=== PATIENT | female | born 1950 | race Caucasian/White ===

== ENCOUNTER 2017-05-25 12:51 | Inpatient (IN) | payer MEDICARE ==
[~2017-05-25] VITALS: Ht 152.4 cm; Wt 145.3 kg
--- NOTE | ~2017-05-25 | PR ---
[place], [place] [facility]GRESS NOTE [id number] UN[facility] #: [id number] ROOM: 407 DOCTOR: AGATHA KABA MD BIRTHDATE: [birth year] DOS: 05/27/2017 SUBJECTIVE: The patient was seen in followup of acute kidney injury. She is still reporting pain along her left flank area. Overall, pain was worse yesterday, seems to be okay overnight. IV fluids are currently off, no reported nausea, vomiting, intake limited, no further NSAIDs or MADELINE inhibitor, diuretics have been given. Imaging reviewed of the renal ultrasound and CT noncontrast, which is concerning for retroperitoneal lymphadenopathy up to 2.8 cm in length and a new left hilar renal mass 5.8 cm, causing some hydronephrosis and cortical thinning. PHYSICAL EXAMINATION: VITAL SIGNS: Blood pressure 154-108/43-68, temperature 98, pulse 91, respiratory rate 20, saturation 96% on room air. GENERAL: She is awake, alert and oriented, obese woman lying in bed. HEAD AND NECK: Sclerae are anicteric. Oropharynx is clear. Mucous membranes moist, no JVD or lymphadenopathy can be evaluated with her thick neck. LUNGS: Fairly clear, but decreased bilaterally secondary to habitus. CARDIOVASCULAR: Regular rate. No audible rub. No palpable lift or heave. ABDOMEN: Obese, soft, nontender, no CVA tenderness, visceral evaluation is limited because of her body habitus. EXTREMITIES: Peripheries without significant cyanosis or clubbing. Some trace to 1+ edema is definitely present. NEUROLOGIC: Gross motor functions and sensation is intact. No asterixis. PSYCHIATRIC: Mood, affect and memory are intact. LABORATORIES AND DIAGNOSTICS: White blood cell count 5.6, hemoglobin 8.1, stable, and platelets 232. Sodium 138, potassium 4.6, chloride 104, bicarbonate 24, BUN 59, creatinine 5.1, unchanged from yesterday and admission of 5.2, glucose 142, calcium 9.5, phosphorus 6.5, magnesium 2.0. TSH and free T4 normal, vitamin D, normal, B12 is low at 241, albumin 2.4. A1c 6.0, phosphorus 6.5. Urine culture, no growth. ASSESSMENT AND PLAN: Severe acute kidney injury: Recent values are not known, but she did have normal renal function in 2016. She had been on MADELINE inhibitors, possibly diuretics as well as multiple NSAIDs. ATN was a high consideration, but imaging has shown left hydronephrosis with a enlarged mass around the hilar area. The right kidney appears unremarkable, however, and it is unclear why she would be in such profound renal failure if that was draining without obstruction. There has not been any improvement in GFR and while she does not need acute dialysis at this point, I do think that transferring her to facility with a Urology evaluation is important now at this point. She was treated for lymphoma and underwent radiation therapy at [facility], so they at least no some of her past history in terms of the lymphoma and maybe a good option for her to seek therapy for this enlarging mass and see Dr. Haque or Dr. Fregoso. The possibilities of dialysis certainly arise and if she requires dialysis, that can be started there as well and if she needs to transfer back to [facility], I would be happy to take care of her back here. I also gave her the option of going to [facility] where we practice as well as [facility]. She will think about it, but I do think that [place] with [place], [place] PROGRESS NOTE NAME: JUS ANDERS UNIT #: [id number] ROOM: 407 DOCTOR: AGATHA KABA MD BIRTHDATE: [birth year] be closer to her by distance and there is at least some continuity there. I discussed all of this with the patient's bedside nurse as well. Thank you very much for the kind consultation. AGATHA KABA MD CM:PNTRANS [id number] AGATHA KABA MD 05/27/17 1031 interface
--- NOTE | ~2017-05-25 | CON ---
[place], [place] REPORT OF CONSULTATION NAME: JUS ANDERS UNIT #: [id number] ROOM: 407 DOCTOR: AGATHA KABA MD BIRTHDATE: [birth year] DOS: 05/25/2017 REASON FOR CONSULTATION: Acute kidney injury reason. REQUESTING: ER. HISTORY OF PRESENT ILLNESS: The patient is a very pleasant 66-year-old woman with no known renal past medical history. She presented to the emergency department with abnormal laboratories from her PCP's office. She was seen by her PCP on Sunday and had labs drawn at [facility], at that time, was told to come to the emergency room for a creatinine over 5. She has a history of longstanding hypertension and is on multiple medications including lisinopril. She also has a history of diabetes and is on pioglitazone as well as Amaryl. She was taking hydrochlorothiazide as well as amlodipine. Recently, she was started on pioglitazone and PPI. The patient has a history of chronic arthritic pains and was having some more pain in the left side of her flank and was on routine meloxicam 15 mg daily as well. It sounds like this may have been started around the time of mid to late December and a refill was given in mid February, according to claim history. She is noted on laboratories to have a creatinine of 5.24 with fairly stable electrolytes and no significant acidosis. Her phosphorus was elevated at 6.8 with a calcium of 10.1, magnesium of 2.2. Her CBC shows anemia with a hemoglobin of 8.4. She has had some chronic anemia with levels in 2013 being around 9.8-10.6. Her creatinine in 2016 was 0.82. A urinalysis was performed, which shows slightly cloudy urine, 1+ protein, 1+ blood, 3+ leukocyte esterase and 1+ bacteria. Her FENa was greater than 1. No overt casts were seen on microscopy. Renal imaging has been ordered, but not yet done. She has been ordered Rocephin and received 1 gram now and was also started on normal saline at a rate of 125 an hour. She states that she was taking some ibuprofen as well as Aleve in addition to the meloxicam at home. She has been having poor appetite for about the last 2-3 months. She states that would eat handfuls of things, maybe at the most and in general, she was not noting any specific emesis but was having nauseated symptoms. No excessive diarrhea or other water loss otherwise. No other rashes. No other toxic exposures or work-related exposures. No history of renal colic or renal stones in the past. REVIEW OF SYSTEMS: As per the HPI, otherwise all systems reviewed and negative. PAST MEDICAL HISTORY: Positive for hypertension, diabetes, hypothyroidism, anxiety, vitamin D deficiency, history of ovarian resection, T and A, and history of panniculectomy. PHYSICAL EXAMINATION: VITAL SIGNS: Temperature 97.8, 76, 16, 114/56, 97% on room air. GENERAL: Obese, female, age appropriate, lying in bed in the gurney, no acute distress from a respiratory standpoint. HEAD AND NECK: Sclerae are anicteric. Oropharynx is slightly dry. Mucous membranes without thrush. NECK: No JVD or lymphadenopathy. LUNGS: Clear bilaterally. No audible rales, rhonchi or wheeze. [place], [place] REPORT OF CONSULTATION NAME: JUS ANDERS UNIT #: [id number] ROOM: [facility] DOCTOR: AGATHA KABA MD BIRTHDATE: [birth year] CARDIOVASCULAR: Regular rate. No audible rub. Distant heart sounds. ABDOMEN: Obese, soft, nontender, no overt visceral assessment can be done because of her size. EXTREMITIES: Without cyanosis, clubbing, 1+ edema bilateral and symmetric. NEUROLOGIC: Gross motor function is intact. No asterixis, no significant tremors. PSYCHIATRIC: Speech, affect, mood and memory is intact LABORATORY AND DIAGNOSTIC DATA: Urinalysis as above. Urine sodium 85. Urine creatinine 62. White blood cell count 6.4, hemoglobin 8.4, platelets 237. Sodium 136, potassium 4.8, chloride 100, bicarbonate 26, BUN 63, creatinine 5.24, glucose 58, calcium 10.1. LFTs unremarkable except albumin 3.0. ASSESSMENT AND PLAN: Acute kidney injury, this is severe. The etiology is potentially prerenal, now turned to ATN, most likely scenario is a combination of multiple NSAID usage plus MADELINE inhibitor and possible diuretic use. The compounding factor of urinary tract infection may be playing a role here as well. Blood pressures are acceptably controlled, but may have been transiently on the low side with potential compounding volume depletion as an outpatient as well because of her poor intake. I agree with IV fluids and discontinuation of MADELINE inhibitors, diuretics and NSAIDs entirely, avoid the use of contrast and other nephrotoxic medications. Empiric Rocephin has been started for urinary tract and cultures should be obtained and monitored. Vitamin D level will be screened and repeat renal chemistries will need to be obtained. She does have anemia. No other signs of acute blood loss. No acute indications for transfusion at this time and evaluate further for nutritional deficiencies per primary. Thank you very much for the kind consultation. Case was discussed with the hospitalist and ER provider. AGATHA KABA MD CM:CONSTR:REPORT OF CONSULTATION [id number] 05/26/17 1049 interface
[~2017-05-25 12:51] MED LIST: ACTOS30 MG PO; AMLODIPINE10 MG PO; CIPRO250 MG PO; DETROL LA2 MG PO; FLUOXETINE HYDR20 M1 PO; GLIMEPIRIDE2 MG PO; LEVOTHYROXIN0.075 MG PO; LISINOPRIL20 MG PO; VITAMIN D2000 IU PO
[2017-05-25 12:57] VITALS: BP 146/65
[2017-05-25 13:42] LABS: BASO % 0.6 % (0.0-1.0); EOS # 0.3 10*3/uL (0.0-0.4); EOS % 4.5 % (1.0-4.0); HEMATOCRIT 26.3 % (37.0-47.0); HEMOGLOBIN 8.4 g/dl (12.0-16.0); LYMPH % 15.5 % (27.0-41.0); MEAN CELL VOLUME 93.6 fl (81.0-99.0); MEAN CORPUSCULAR HGB 29.9 pg (27.0-31.0); MEAN CORPUSCULAR HGB CONC 31.9 g/dl (33.0-37.0); MEAN PLATELET VOLUME 9.3 fl (9.6-12.3); MONO # 0.6 10*3/uL (0.1-1.0); NEUT # 4.4 10*3/uL (2.3-7.9); NEUT % 69.1 % (47.0-73.0); PLATELET COUNT AUTOMATED 237 10*3/uL (130-400); RED BLOOD COUNT 2.81 10*6/uL (4.10-5.10); RED CELL DISTRI WIDTH 13.9 % (0-14.5); WHITE BLOOD COUNT 6.4 10*3/uL (4.8-10.8)
[2017-05-25 13:57] LABS: MAGNESIUM 2.2 mg/dL (1.5-2.1); PHOSPHOROUS 6.8 mg/dL (2.5-4.9)
[2017-05-25 13:59] LABS: CREATININE 5.24 mg/dL (0.55-1.02); POTASSIUM 4.8 mmol/L (3.5-5.1); TOTAL PROTEIN 7.1 gm/dL (6.4-8.2)
[2017-05-25 14:54] LABS: BILIRUBIN NEGATIVE (NEGATIVE); BLOOD 1+ (NEGATIVE); CLARITY SL CLOUDY (CLEAR); COLOR YELLOW (YELLOW); GLUCOSE NEGATIVE (NEGATIVE); KETONE NEGATIVE (NEGATIVE); LEUKO ESTERASE 3+ (NEGATIVE); NITRITE NEGATIVE (NEGATIVE); UROBILINOGEN 0.2 E.U./dl (0.2-1.0)
[2017-05-25 15:06] LABS: BACTERIA 1+; WBC 41-50 wbc/hpf (0-5)
[2017-05-25 15:09] VITALS: BP 114/56
--- NOTE | 2017-05-25 15:11 | NUR ---
RECTAL EXAM DONE TO LAKIA CASTELLANOS.GUIAC STOOL WAS NEGATIVE--MILO OLIVAS RN
--- NOTE | 2017-05-25 15:32 | NUR ---
PT ATE 100% OF BOX LUNCH--MILO OLIVAS RN
--- NOTE | 2017-05-25 17:42 | NUR ---
A 66, admitted to 4E, under the services of BRE [place] DO with a diagnosis of UTI, HTN,ARF. Chief complaint is PT SENT TO ER FROM PCPS OFFICE FOR ABNORMAL LABWORK AND HAS NO COMPLAINTS AT THIS PRESENT TIME.. Patient arrived via bed from ER. Monitor applied. Initial assessment completed. Vital signs taken and recorded. BRE TOLEDO DO notified of admission to the unit. Orders received. See assessment for past medical history, medications and allergies. Patient and/or family oriented to unit. [facility] visitation policy reviewed. Clothing/patient valuable form completed. ALEKSANDAR GEORGE
[2017-05-25 17:54] VITALS: BP 161/77
--- NOTE | 2017-05-25 18:07 | NUR ---
PT UNABLE TO PROVIDE LIST OF HOME MEDICATIONS AT THIS TIME AND USES A MAIL ORDER PAHARMACY THAT IS UNABLE TO PROVIDE A LIST TO THIS NURSE. PT IS TO CALL HER AUNT WHEN SHE ARRIVES HOME TO GET AN ACCURATE LIST.
[2017-05-25 20:00] VITALS: BP 142/54
[2017-05-25] MEDS ORDERED: VENLAFAXINE75 M1 PO (20:02)
[2017-05-25] MEDS ORDERED: PRAVASTATIN SOD80 MG PO (20:04)
[2017-05-25] MEDS ORDERED: VESICARE5 MG PO (20:05)
[2017-05-25] MEDS ORDERED: MELOXICAM15 MG PO (20:10)
[2017-05-25] MEDS ORDERED: VITAMIN B COMP1 EACH PO (20:14)
--- NOTE | 2017-05-25 20:15 | NUR ---
Aunt called in and gave patient a complete list of medications and doses. Medication Reconciliation updated and verified with patient and medication list.
[2017-05-26] VITALS: BP 140/68
--- NOTE | 2017-05-26 01:20 | NUR ---
24 HR chart check completed.
[2017-05-26 07:08] LABS: BASO % 0.5 % (0.0-1.0); EOS # 0.3 10*3/uL (0.0-0.4); EOS % 5.2 % (1.0-4.0); HEMATOCRIT 23.7 % (37.0-47.0); HEMOGLOBIN 7.4 g/dl (12.0-16.0); LYMPH # 0.8 10*3/uL (1.3-4.4); LYMPH % 14.2 % (27.0-41.0); MEAN CELL VOLUME 95.6 fl (81.0-99.0); MEAN CORPUSCULAR HGB 29.8 pg (27.0-31.0); MEAN CORPUSCULAR HGB CONC 31.2 g/dl (33.0-37.0); MEAN PLATELET VOLUME 9.6 fl (9.6-12.3); MONO # 0.7 10*3/uL (0.1-1.0); NEUT # 3.9 10*3/uL (2.3-7.9); NEUT % 67.9 % (47.0-73.0); PLATELET COUNT AUTOMATED 217 10*3/uL (130-400); RED BLOOD COUNT 2.48 10*6/uL (4.10-5.10); RED CELL DISTRI WIDTH 14.1 % (0-14.5); WHITE BLOOD COUNT 5.8 10*3/uL (4.8-10.8)
[2017-05-26 07:30] LABS: ALBUMIN 2.4 gm/dl (3.1-4.5); CREATININE 5.1 mg/dL (0.55-1.02); MAGNESIUM 1.9 mg/dL (1.5-2.1); PHOSPHOROUS 6.5 mg/dL (2.5-4.9); POTASSIUM 4.5 mmol/L (3.5-5.1)
[2017-05-26 07:36] LABS: FREE T4 1.25 ng/dl (0.76-1.46); THYROID STIM HORMONE (HS) 2.2 uIU/ml (0.358-4.75)
[2017-05-26 08:00] VITALS: BP 122/54
[2017-05-26 08:00] LABS: ACT PARTIAL THROMBO TIME 26.8 SECONDS (20.8-31.5)
[2017-05-26 08:32] LABS: VITAMIN D, 25-HYDROXY 29.4 ng/mL (30-100)
--- NOTE | 2017-05-26 08:35 | NUR ---
DR. Lowry notified of pt hemoglobin of 7.4.
[2017-05-26 12:00] VITALS: BP 150/54
[2017-05-26 16:00] VITALS: BP 143/67
[2017-05-26 20:00] VITALS: BP 108/43
[2017-05-27] VITALS: BP 154/68
--- NOTE | 2017-05-27 00:28 | NUR ---
24 HR chart check completed.
[2017-05-27 06:13] LABS: BASO % 0.7 % (0.0-1.0); EOS # 0.3 10*3/uL (0.0-0.4); EOS % 5.7 % (1.0-4.0); HEMATOCRIT 25.4 % (37.0-47.0); HEMOGLOBIN 8.1 g/dl (12.0-16.0); LYMPH # 0.8 10*3/uL (1.3-4.4); LYMPH % 14.2 % (27.0-41.0); MEAN CELL VOLUME 94.4 fl (81.0-99.0); MEAN CORPUSCULAR HGB 30.1 pg (27.0-31.0); MEAN CORPUSCULAR HGB CONC 31.9 g/dl (33.0-37.0); MEAN PLATELET VOLUME 9.9 fl (9.6-12.3); MONO # 0.7 10*3/uL (0.1-1.0); MONO % 12.2 % (3.0-9.0); NEUT # 3.7 10*3/uL (2.3-7.9); NEUT % 66.8 % (47.0-73.0); PLATELET COUNT AUTOMATED 232 10*3/uL (130-400); RED BLOOD COUNT 2.69 10*6/uL (4.10-5.10); RED CELL DISTRI WIDTH 13.9 % (0-14.5); WHITE BLOOD COUNT 5.6 10*3/uL (4.8-10.8)
[2017-05-27 06:52] LABS: CREATININE 5.1 mg/dL (0.55-1.02); PHOSPHOROUS 6.5 mg/dL (2.5-4.9); POTASSIUM 4.6 mmol/L (3.5-5.1)
--- NOTE | 2017-05-27 07:25 | NUR ---
CALLED DR KABA TO NOTIFY OF LAB RESULTS PER HIS REQUEST. SERVICE STATED THEY WOULD PAGE HIM.
--- NOTE | 2017-05-27 07:36 | NUR ---
Shift chart check completed.
--- NOTE | 2017-05-27 07:42 | NUR ---
NOTIFIED DR NEUMANN THAT DR KABA RECOMMENDS THAT PATIENT BE TRANSFERRED TO ANOTHER FACILITY DUE TO HER BUN AND EQUAL OPPORTUNITY SPECIALIST LEVEL.
[2017-05-27 08:00] VITALS: BP 152/75
[2017-05-27 12:00] VITALS: BP 149/83
[2017-05-27] MEDS ORDERED: NATURE'S BLEND F1 MG PO (13:53)
[2017-05-27] MEDS ORDERED: HEPARIN SO5000 UNIT/ SC (13:53)
[2017-05-27] MEDS ORDERED: B12,B-12,B 12500 MC1 PO (13:53)
[2017-05-27] MEDS ORDERED: Insulin Lispro, Reco SC (13:53)
[2017-05-27 16:00] VITALS: BP 113/50
--- NOTE | 2017-05-27 18:54 | NUR ---
CALLED REPORT TO NAIN AT [facility].
--- NOTE | 2017-05-27 19:03 | NUR ---
PATIENT LEFT WITH [facility]. PATIENT IS D/C TO [facility].
== END 2017-05-27 19:03 | disposition short-term general hospital (02) | DRG 683 ==
LOC: ED 12:51 → 4E 15:15 → EDHOLD 15:15 → 4E 15:31
PROVIDERS: Nurse Practitioner Family; Student in an Organized Health Care Education/Training Program; ADMIT Internal Medicine
DX: N17.0 Acute kidney failure with tubular necrosis (principal); N30.01 Acute cystitis with hematuria; E44.0 Moderate protein-calorie malnutrition; N13.30 Unspecified hydronephrosis; E11.65 Type 2 diabetes mellitus with hyperglycemia; Z68.44 Body mass index [BMI] 60.0-69.9, adult; E83.39 Other disorders of phosphorus metabolism; E83.41 Hypermagnesemia; G89.29 Other chronic pain; I10 Essential (primary) hypertension; E03.9 Hypothyroidism, unspecified; F41.9 Anxiety disorder, unspecified; T39.395A Adverse effect of other nonsteroidal anti-inflammatory drugs [NSAID], initial encounter; T46.4X5A Adverse effect of angiotensin-converting-enzyme inhibitors, initial encounter; N32.81 Overactive bladder; E66.01 Morbid (severe) obesity due to excess calories; E78.00 Pure hypercholesterolemia, unspecified; D64.9 Anemia, unspecified; F32.9 Major depressive disorder, single episode, unspecified; Z85.72 Personal history of non-Hodgkin lymphomas; Z79.899 Other long term (current) drug therapy; Z90.49 Acquired absence of other specified parts of digestive tract; Z90.722 Acquired absence of ovaries, bilateral; Z92.3 Personal history of irradiation; Y92.89 Other specified places as the place of occurrence of the external cause

== ENCOUNTER → 2018-03-01 | Outpatient (CLI) | payer MEDICARE ==
[~2018-03-01] MED LIST changes: +AMARYL2 MG PO; +B12,B-12,B 12500 MC1 PO; +HEPARIN SO5000 UNIT/ SC; +Insulin Lispro, Reco SC; +MELOXICAM15 MG PO; +NATURE'S BLEND F1 MG PO; +PRAVASTATIN SOD80 MG PO; +VENLAFAXINE75 M1 PO; +VESICARE5 MG PO; +VITAMIN B COMP1 EACH PO
[2018-03-01 12:35] VITALS: BP 124/50
[2018-03-01 13:42] LABS: HEMOGLOBIN 8.4 g/dl (12.0-16.0); MEAN CELL VOLUME 96.4 fl (81.0-99.0); MEAN CORPUSCULAR HGB CONC 31.1 g/dl (33.0-37.0); RED CELL DISTRI WIDTH 15.8 % (0-14.5)
[2018-03-01 14:05] LABS: BASOPHILS 1 % (0-1); TOTAL CELLS COUNTED 100 #CELLS
[2018-03-01 14:08] LABS: PLATELET SUFFICIENCY LOW (NORMAL)
[2018-03-01 14:09] LABS: DOHLE BODIES FEW; TOXIC GRANULATION SLIGHT
[2018-03-01 14:14] LABS: PLATELET COUNT AUTOMATED 6 10*3/uL (130-400)
[2018-03-01 14:15] LABS: WHITE BLOOD COUNT 1.6 10*3/uL (4.8-10.8)
[2018-03-01 16:30] VITALS: BP 133/56
== END ==
LOC: TRNFUSION 10:56
PROVIDERS: Nurse Practitioner
DX: Z51.89 Encounter for other specified aftercare (principal); N18.3 Chronic kidney disease, stage 3 (moderate); C83.38 Diffuse large B-cell lymphoma, lymph nodes of multiple sites; D63.1 Anemia in chronic kidney disease

== ENCOUNTER → 2019-05-21 | Day surgery (SDC) | payer MEDICARE ==
[~2019-05-21] VITALS: Ht 149.8 cm; Wt 128.8 kg
--- NOTE | ~2019-05-21 | O ---
[place], [place] OPERATIVE NOTE NAME: JUS ANDERS UNIT #: [id number] ROOM: DOCTOR: PARI GANDARA MD BIRTHDATE: [birth year] DOS: 05/21/2019 GASTROENDOSCOPIC REPORT HISTORY OF PRESENT ILLNESS: A 68-year-old patient who has presented for colonic screening, undergoing investigation. PAST MEDICAL HISTORY: Associated with diabetes mellitus, chronic renal disease, morbid obesity, systemic hypertension. PAST SURGICAL HISTORY: MediPort renal stent. ALLERGIES: No medication. FAMILY HISTORY: Noncontributory. SOCIAL HISTORY: Nonsmoker, nonalcohol consumer. PROCEDURE: Today's procedure part of investigation is colonoscopy plus piecemeal polypectomy. PREMEDICATION: Versed and Propofol. SCOPE: Olympus forward-viewing colonoscope 10L video. REPORT: After putting the patient in left lateral position and application of lubricant to the scope, the scope was introduced. Thereafter, under direct visualization, advanced through the length of colon without difficulty. Base of the cecum explored, appendiceal orifice identified. Sessile diminutive polyp in the mid ascending and cecum was removed with biopsy, the patient was gradually extubated. Rare diverticulosis was identified. The patient extubated, tolerated the procedure well. IMPRESSION: Diverticulosis in the rare form and sessile polypoid lesion at the base of cecum, status post piecemeal polypectomy small hemorrhoids. PLAN AND DISCUSSION: High fiber diet, low-fat diet. We are already are following on the issue of B-cell lymphoma, she is status post chemoradiation and renal failure is being managed by and supportive work in progress. Thank you very much indeed. [place], [place] OPERATIVE NOTE NAME: JUS ANDERS UNIT #: [id number] ROOM: DOCTOR: PARI GANDARA MD BIRTHDATE: [birth year] PARI GANDARA MD CM:OPRECORD:OPERATIVE NOTE [id number] PARI GANDARA MD 05/21/19 1200 interface
[2019-05-21 07:00] VITALS: BP 99/36
[2019-05-21 08:17] VITALS: BP 123/83
[2019-05-21 08:29] VITALS: BP 117/84
[2019-05-21 08:45] VITALS: BP 142/68
== END | disposition home or self-care (01) ==
LOC: SDC 05-19 11:00
DX: Z12.11 Encounter for screening for malignant neoplasm of colon (principal); K63.5 Polyp of colon; K57.30 Diverticulosis of large intestine without perforation or abscess without bleeding; I12.9 Hypertensive chronic kidney disease with stage 1 through stage 4 chronic kidney disease, or unspecified chronic kidney disease; E11.22 Type 2 diabetes mellitus with diabetic chronic kidney disease; N18.4 Chronic kidney disease, stage 4 (severe); K21.9 Gastro-esophageal reflux disease without esophagitis; F32.9 Major depressive disorder, single episode, unspecified; G47.30 Sleep apnea, unspecified; E66.01 Morbid (severe) obesity due to excess calories; Z68.43 Body mass index [BMI] 50.0-59.9, adult; Z79.899 Other long term (current) drug therapy; Z98.890 Other specified postprocedural states; Z85.9 Personal history of malignant neoplasm, unspecified; Z83.3 Family history of diabetes mellitus

== ENCOUNTER 2019-09-06 14:50 | Inpatient (IN) | payer MEDICARE ==
[~2019-09-06] VITALS: Ht 149.9 cm; Wt 135.9 kg
[2019-09-06 14:52] VITALS: BP 174/79
[2019-09-06 16:30] LABS: BASO % 0.1 % (0.0-1.0); HEMATOCRIT 32.9 % (37.0-47.0); HEMOGLOBIN 10.5 g/dl (12.0-16.0); LYMPH # 0.3 10*3/uL (1.3-4.4); MEAN CELL VOLUME 101.5 fl (81.0-99.0); MEAN CORPUSCULAR HGB 32.4 pg (27.0-31.0); MEAN CORPUSCULAR HGB CONC 31.9 g/dl (33.0-37.0); MEAN PLATELET VOLUME 10.4 fl (9.6-12.3); MONO # 1.2 10*3/uL (0.1-1.0); MONO % 8.7 % (3.0-9.0); NEUT # 12.6 10*3/uL (2.3-7.9); NEUT % 88.3 % (47.0-73.0); PLATELET COUNT AUTOMATED 67 10*3/uL (130-400); RED BLOOD COUNT 3.24 10*6/uL (4.10-5.10); RED CELL DISTRI WIDTH 13.8 % (0-14.5); WHITE BLOOD COUNT 14.2 10*3/uL (4.8-10.8)
[2019-09-06 16:30] LABS: BILIRUBIN NEGATIVE (NEGATIVE); BLOOD 2+ (NEGATIVE); CLARITY CLEAR (CLEAR); COLOR YELLOW (YELLOW); GLUCOSE TRACE (NEGATIVE); KETONE NEGATIVE (NEGATIVE); LEUKO ESTERASE NEGATIVE (NEGATIVE); NITRITE NEGATIVE (NEGATIVE); SPECIFIC GRAVITY 1.015 (1.005-1.030); UROBILINOGEN 0.2 E.U./dl (0.2-1.0)
[2019-09-06 16:40] LABS: BACTERIA 1+
[2019-09-06 16:53] LABS: ALBUMIN 3.5 gm/dl (3.1-4.5); CREATININE 3.06 mg/dL (0.55-1.02); TOTAL PROTEIN 6.5 gm/dL (6.4-8.2)
[2019-09-06 19:25] VITALS: BP 154/70
[2019-09-06 20:00] VITALS: BP 154/70
[2019-09-06] MEDS ORDERED: OXYBUTYNIN5 MG PO (20:42)
[2019-09-06] MEDS ORDERED: AMLODIPINE BESY10 MG PO (20:42)
[2019-09-06] MEDS ORDERED: LABETALOL HCL100 MG PO (21:18)
[2019-09-06] MEDS ORDERED: OMEPRAZOLE40 MG PO (21:29)
--- NOTE | 2019-09-06 21:31 | NUR ---
UNABLE TO UPDATE MED REC FULLY AT THIS TIME.
--- NOTE | 2019-09-06 21:48 | NUR ---
Time: 1926 A 68 year old FEMALE admitted to 5E under services of MICHEAL MARIA DO. Pt. arrived via wheel chair from ER. Chief complaint: COLD SYMPTOMS. TANYA BAE
[2019-09-07] VITALS: BP 139/67
[2019-09-07] MEDS ORDERED: ALDACTONE25 MG PO (01:58)
[2019-09-07] MEDS ORDERED: ACYCLOVIR200 MG PO (01:59)
[2019-09-07] MEDS ORDERED: BUMETANIDE2 MG PO (01:59)
[2019-09-07] MEDS ORDERED: PIOGLITAZONE HC30 MG PO (02:00)
--- NOTE | 2019-09-07 02:01 | NUR ---
MED REC UP TO DATE VIA MED CLAIM HISTORY.
[2019-09-07 06:09] LABS: BASO % 0.2 % (0.0-1.0); EOS # 0.1 10*3/uL (0.0-0.4); EOS % 0.5 % (1.0-4.0); HEMATOCRIT 29.2 % (37.0-47.0); HEMOGLOBIN 9.2 g/dl (12.0-16.0); LYMPH # 0.4 10*3/uL (1.3-4.4); LYMPH % 2.6 % (27.0-41.0); MEAN CELL VOLUME 101.4 fl (81.0-99.0); MEAN CORPUSCULAR HGB 31.9 pg (27.0-31.0); MEAN CORPUSCULAR HGB CONC 31.5 g/dl (33.0-37.0); MEAN PLATELET VOLUME 11.3 fl (9.6-12.3); MONO # 1.2 10*3/uL (0.1-1.0); MONO % 8.4 % (3.0-9.0); NEUT # 12.8 10*3/uL (2.3-7.9); NEUT % 87.3 % (47.0-73.0); PLATELET COUNT AUTOMATED 67 10*3/uL (130-400); RED BLOOD COUNT 2.88 10*6/uL (4.10-5.10); RED CELL DISTRI WIDTH 13.9 % (0-14.5); WHITE BLOOD COUNT 14.7 10*3/uL (4.8-10.8)
[2019-09-07 06:37] LABS: ALBUMIN 2.9 gm/dl (3.1-4.5); PHOSPHOROUS 3.2 mg/dL (2.5-4.9); POTASSIUM 3.9 mmol/L (3.5-5.1)
[2019-09-07 06:45] LABS: FREE T4 1.2 ng/dl (0.76-1.46); THYROID STIM HORMONE (HS) 0.836 uIU/ml (0.358-4.75); TOTAL PROTEIN 5.7 gm/dL (6.4-8.2)
[2019-09-07 08:00] VITALS: BP 138/63
--- NOTE | 2019-09-07 08:00 | NUR ---
CONSULT COMPLETE FOR DR. ERVIN, SEE NEW ORDERS.
[2019-09-07 08:29] LABS: VITAMIN D, 25-HYDROXY 27.3 ng/mL (30-100)
--- NOTE | 2019-09-07 09:07 | NUR ---
24 HR chart check completed.
--- NOTE | 2019-09-07 09:30 | NUR ---
SLEEPING. AWAKENS EASILY. RESPIRATIONS EASY. LUNGS DIMINISHED. PULSE OX 96% RA. NON-PROD COUGH. +2 PITTING BLE EDEMA. IV FLUIDS INFUSING PER ORDER. CALL LIGHT WITHIN REACH. NO VOICED COMPLAINTS.
--- NOTE | 2019-09-07 10:14 | NUR ---
MEDCIATED WITH TYLENOL PER PRN ORDER FOR COMPLAINTS OF HEADACHE RATING A 4. CALL LIGHT WITHIN REACH. WILL MONITOR
--- NOTE | 2019-09-07 11:30 | NUR ---
MEDS APPEAR EFFECTIVE. SLEEPING. RESPIRATIONS EASY. IV FLUIDS MAINTAINED. CALL LIGHT WITHIN REACH
[2019-09-07 12:00] VITALS: BP 125/55
--- NOTE | 2019-09-07 14:15 | NUR ---
ATTEMPTED TO REACH INFECTIOUS DISEASE. MESSAGE LEFT WITH ANSWERING SERVICE REGARDING CONSULT, AWAITING RETURN CALL
--- NOTE | 2019-09-07 14:45 | NUR ---
DR GILBERT CONTACTED AND INFORMED OF CONSULT. WILL SEE PATIENT SUNDAY
[2019-09-07 16:00] VITALS: BP 147/60
--- NOTE | 2019-09-07 17:30 | NUR ---
DR ERVIN HERE TO ASSESS PATIENT AND DISCUSS PLAN OF CARE
[2019-09-07 20:00] VITALS: BP 141/58
--- NOTE | 2019-09-07 20:00 | NUR ---
PATIENT ASSISTED TO BATHROOM. INCONTINENT ALL THE WAY TO THE BATHROOM. PATIENT ASSISTED WITH CLEANING SELF UP. RESPIRATIONS REGULAR AND NON-LABORED. DENIES COMPLAINTS OF PAIN OR DISCOMFORT. ASSISTED BACK TO BED. WILL CONTINUE TO MONITOR. CALL LIGHT IN REACH.
[2019-09-08] VITALS: BP 132/57
[2019-09-08 06:07] LABS: BASO % 0.3 % (0.0-1.0); EOS # 0.1 10*3/uL (0.0-0.4); EOS % 0.5 % (1.0-4.0); HEMATOCRIT 26.4 % (37.0-47.0); HEMOGLOBIN 8.4 g/dl (12.0-16.0); LYMPH # 0.5 10*3/uL (1.3-4.4); LYMPH % 4.6 % (27.0-41.0); MEAN CELL VOLUME 100.4 fl (81.0-99.0); MEAN CORPUSCULAR HGB 31.9 pg (27.0-31.0); MEAN CORPUSCULAR HGB CONC 31.8 g/dl (33.0-37.0); MEAN PLATELET VOLUME 11.2 fl (9.6-12.3); MONO # 1.2 10*3/uL (0.1-1.0); MONO % 10.4 % (3.0-9.0); NEUT # 9.6 10*3/uL (2.3-7.9); NEUT % 83.4 % (47.0-73.0); PLATELET COUNT AUTOMATED 69 10*3/uL (130-400); RED BLOOD COUNT 2.63 10*6/uL (4.10-5.10); RED CELL DISTRI WIDTH 13.9 % (0-14.5); WHITE BLOOD COUNT 11.5 10*3/uL (4.8-10.8)
[2019-09-08 06:31] LABS: CREATININE 3.2 mg/dL (0.55-1.02); POTASSIUM 3.9 mmol/L (3.5-5.1)
[2019-09-08 08:00] VITALS: BP 129/51
--- NOTE | 2019-09-08 08:25 | NUR ---
PHYSICAL THERAPY Screen recieved, pt admit from home with respiratory issues please consult physical therapy if decline in functional status/ambulation from baseline, thank you. Marisabel Joaquin PT
--- NOTE | 2019-09-08 08:58 | NUR ---
Neurological: AAOX3 Respiratory: ROOM AIR, NONLABORED Breath sounds: DIMINISHED T/O Cough: MOIST NONPRODUCTIVE AT TIMES Cardiovascular: DENIES CP/PRESSURE 2+ PITTING BLE EDEMA, PPP Gastrointestinal: NORMOACTIVE X4 QUADS, DENIES N/V/D/C, ABD SOFT/NONTENDER/OBESE Genito/Urinary: DENIES DYSURIA Musculoskeketal: AMBULATORY W/ WALKER, SKIN W/D AND INTACT PATIENT IS RESTING IN BED WITH NO C/O OR S/S OF DISTRESS NOTED AT THIS TIME. BED IS LOW, LOCKED, AND CALL LIGHT IS WITHIN REACH. WILL CONTINUE TO MONITOR, SEE SHIFT ASSESSMENT. TANYA BAE A
--- NOTE | 2019-09-08 10:55 | NUR ---
PATIENT IS SPEAKING ON TELEPHONE AT THIS TIME, NO S/S OF DISTRESS NOTED. CALL LIGHT IS WITHIN REACH.
[2019-09-08 12:00] VITALS: BP 121/51
--- NOTE | 2019-09-08 13:58 | NUR ---
DR. MCDONALD ON FLOOR EARLIER TODAY AND WAS MADE AWARE OF CONSULT. PATIENT SEEN BY HIM WELL.
--- NOTE | 2019-09-08 14:23 | NUR ---
Associate Brand Manager in to talk to patient. Patient states lives at HOME with AUNT. There are FEW steps in the home. Physician: ALEXANDRA Pharmacy: [facility] [place] health services: NONE Patient's level of ADLs: INDEPENDENT Patient has working utilities: YES DME: NONE Follow-up physician's appointment after d/c: WILL BE MADE BY HOSPITALIST NURSE DIRECTOR ON DISCHARGE Does patient want to access PORTAL?: NO Discharge plan PT LIVES AT HOME WITH HER AUNT AND IS INDEPENDENT IN HER CARE. STATES SHE IS IN THE PROCESS OF MOVING CLOSE TO [facility]. DENIES SHE WILL HAVE NEEDS ON DISCHARGE. STATES SHE WILL SET UP ANYTHING SHE NEEDS WHEN SHE GETS NEW DOCTOR IN [place]. [place] CONTINUE TO FOLLOW. STATES SHE WILL HAVE A RIDE HOME.. TONNY ADAMS
--- NOTE | 2019-09-08 14:59 | NUR ---
SPEECH PATHOLOGY Modified barium swallow completed as per orders to rule out aspiration. Medical history includes chronic renal disease, bronchial pneumonia, abdominal CA, NIDDM, HTN. Patient receives a regular diet and thin liquid. She endorsed difficulty characterized by a feeling that foods (mostly meats) are sticking in her throat. She stated that it occurs, she drinks water which eventually helps relieve the feeling of globus. Patient was assessed with barium coated applesauce, turkey sandwich and thin liquid barium taken by cup and straw. Results revealed oral and pharyngeal swallowing skills WNL. Recommend she remain on present diet and use strategies such as chewing thoroughly and alternating liquid and solid. No follow up treatment is warranted at this time. Results and ghazal. were shared with patient and her nurse and they verbalized understanding. Dictated report to follow. Thank you for this referral. FAVIO WILKERSON [facility]-COMPUTER SUPPORT ANALYST
[2019-09-08 16:00] VITALS: BP 116/50
--- NOTE | 2019-09-08 16:41 | NUR ---
Nursing screen received and chart review completed. Patient admitted with cold symptoms and was independent prior to admission. No OT indicated at this time. Thank you. Sowmya Seth OTR/L
[2019-09-08 20:00] VITALS: BP 125/55
[2019-09-09] VITALS: BP 119/68
[2019-09-09 06:25] LABS: BASO % 0.2 % (0.0-1.0); EOS # 0.2 10*3/uL (0.0-0.4); EOS % 2.1 % (1.0-4.0); HEMATOCRIT 25.9 % (37.0-47.0); HEMOGLOBIN 8.1 g/dl (12.0-16.0); LYMPH # 0.5 10*3/uL (1.3-4.4); LYMPH % 5.5 % (27.0-41.0); MEAN CELL VOLUME 100.4 fl (81.0-99.0); MEAN CORPUSCULAR HGB 31.4 pg (27.0-31.0); MEAN CORPUSCULAR HGB CONC 31.3 g/dl (33.0-37.0); MEAN PLATELET VOLUME 11.5 fl (9.6-12.3); MONO % 11.1 % (3.0-9.0); NEUT # 6.9 10*3/uL (2.3-7.9); NEUT % 80.2 % (47.0-73.0); PLATELET COUNT AUTOMATED 85 10*3/uL (130-400); RED BLOOD COUNT 2.58 10*6/uL (4.10-5.10); RED CELL DISTRI WIDTH 13.8 % (0-14.5); WHITE BLOOD COUNT 8.6 10*3/uL (4.8-10.8)
[2019-09-09 06:47] LABS: CREATININE 3.4 mg/dL (0.55-1.02); POTASSIUM 3.9 mmol/L (3.5-5.1)
[2019-09-09 08:00] VITALS: BP 138/56
--- NOTE | 2019-09-09 10:10 | NUR ---
NOTIFIED OF BLOOD CULTURE RESULTS.
--- NOTE | 2019-09-09 11:54 | NUR ---
MANAGER SERVICES BACK IN TO TALK TO PT ABOUT REHAB IF IV ANTIBIOTICS ARE NEEDED AFTER DISCHARGE. PT STATES SHE DOES NOT WANT TO GO TO REHAB SHE WAS IN ONE ONCE AND DOES NOT WANT TO GO AGAIN. ASK HER IF NEEDED SHE WOULD HAVE HELP AT HOME TO GET THEM. STATES SHE DOES NOT KNOW AT THIS TIME. WILL CONTINUE TO FOLLOW.
[2019-09-09 12:00] VITALS: BP 132/60
[2019-09-09] MEDS ORDERED: VITAMIN D32000 UNI1 PO (14:27)
[2019-09-09] MEDS ORDERED: ENOXAPARIN30 MG/0.2 SC (14:27)
--- NOTE | 2019-09-09 15:38 | NUR ---
[facility]ED [facility] TO GET PRE AUTORAZATION FOR PT TO BE TRANSFERRED TO [facility] FOR UROLOGY. PER GABBIE AT [facility] THEY ARE IN NENTWORK WITH [facility] AND NO PRE AUTH IS REQUIRED. REF NUMBER FOR CALL IS [id number]. CALLED [facility] AND SPOKE WITH NURSING COMMISSIONING MANAGER AND INFORMED HER THAT PT DID NOT REQUIRE PRE AUTH FOR TRANSFER. SHE WILL CALL ME IF BEFORE 4:30 PM OR 5E IF AFTER 4:30 PM WITH BED. [place] OUTER DIAMETER GRINDER TOOL ON 5 INFORMED.
[2019-09-09 16:00] VITALS: BP 124/66
--- NOTE | 2019-09-09 16:17 | NUR ---
PATIENT C/O LEFT FLANK PAIN. MEDICATED WITH MORPHINE SULFATE 2MG IV PER PRN ORDER. WILL CONTINUE TO MONITOR.
--- NOTE | 2019-09-09 18:02 | NUR ---
PATIENT RESTING QUIETLY. MORPHINE EFFECTIVE.
--- NOTE | 2019-09-09 20:21 | NUR ---
REPORT CALLED AND GIVEN TO 7TH FLOOR RN AT [facility]. PATIENT OFF FLOOR AT APPROXIMATELY 1930 WITH [facility].
== END 2019-09-09 20:37 | disposition short-term general hospital (02) | DRG 871 ==
LOC: ED 14:50 → EDHOLD 17:10 → 5E 17:10
PROVIDERS: Internal Medicine; Internal Medicine Nephrology; Nurse Practitioner Family; ADMIT Internal Medicine
PROC: BD1BYZZ Fluoroscopy of Mouth/Oropharynx using Other Contrast (ICD-10-PCS; principal; 2019-09-08)
DX: A41.81 Sepsis due to Enterococcus (principal); J18.0 Bronchopneumonia, unspecified organism; E43 Unspecified severe protein-calorie malnutrition; N18.4 Chronic kidney disease, stage 4 (severe); N11.1 Chronic obstructive pyelonephritis; C85.90 Non-Hodgkin lymphoma, unspecified, unspecified site; N17.9 Acute kidney failure, unspecified; Z68.44 Body mass index [BMI] 60.0-69.9, adult; E66.01 Morbid (severe) obesity due to excess calories; E03.9 Hypothyroidism, unspecified; I12.9 Hypertensive chronic kidney disease with stage 1 through stage 4 chronic kidney disease, or unspecified chronic kidney disease; K83.8 Other specified diseases of biliary tract; N28.89 Other specified disorders of kidney and ureter; F41.1 Generalized anxiety disorder; E11.22 Type 2 diabetes mellitus with diabetic chronic kidney disease; K80.20 Calculus of gallbladder without cholecystitis without obstruction; F32.9 Major depressive disorder, single episode, unspecified; I70.1 Atherosclerosis of renal artery; E11.65 Type 2 diabetes mellitus with hyperglycemia; D53.9 Nutritional anemia, unspecified; D69.6 Thrombocytopenia, unspecified; E55.9 Vitamin D deficiency, unspecified; Z90.79 Acquired absence of other genital organ(s); Z90.710 Acquired absence of both cervix and uterus; Z83.3 Family history of diabetes mellitus; Z79.899 Other long term (current) drug therapy; Z79.84 Long term (current) use of oral hypoglycemic drugs; Z87.442 Personal history of urinary calculi; Z92.21 Personal history of antineoplastic chemotherapy